=== PATIENT | male | born 1985 | race Caucasian/White ===

== ENCOUNTER 2022-07-29 09:32 | Emergency (ER) | payer BC ==
[2022-07-29 09:38] VITALS: RESP 16
--- NOTE | 2022-07-29 10:24 | XR ---
EXAMINATION TYPE: XR toes LT DATE OF EXAM: 07/29/2022 10:14 AM INDICATION: Patient age:Male; 36 years old; Reason for study: Trauma; [facility]. COMPARISON: None TECHNIQUE: The right great toe was examined in the AP, oblique, and lateral projections. FINDINGS: Nondisplaced fracture involving the distal first phalanx tuft. Soft tissue defect with gas identified involving the distal tip of the right great toe. No radiopaque foreign bodies. IMPRESSION: 1. Nondisplaced fracture involving the distal first phalanx tuft. 2. Soft tissue defect with gas identified over the distal tip of the first phalanx consistent with l aceration.
[2022-07-29] MEDS ORDERED: LIDOCAINE 1% INJ 10MG/ML (5 ML VIAL-PF) SQ STA (10:40)
[2022-07-29] MEDS ORDERED: MORPHINE SULFATE 4 MG/ML SYRINGE IM STA (10:42)
--- NOTE | 2022-07-29 10:46 | ED ---
Lower Extremity Injury HPI - General Chief Complaint: Extremity Injury, Lower Stated Complaint: rt toe injury Source: patient Mode of arrival: ambulatory Limitations: no limitations - History of Present Illness Initial Comments: Patient is a 36-year-old male presents to the emergency room after hitting his toe with a sledgehammer causing a laceration and significant pain and swelling to his great toe. He reports that he called the emergency room yesterday when the injury occurred but due to the weight times over weighted to attend the present to the emergency room until morning. During that time he did apply cornstarch to the wound as he was told by his grandmother will help staunch the bleeding. He also applied a dressing. He denies applying any other medications to the wound. He reports pain, swelling, and range of motion impairment since the trauma. He denies any fevers or chills. He has previously seen Dr. Ann for injury to his right ankle but denies any other significant past medical history. - Related Data Previous Rx's Medication Instructions Recorded Cephalexin [Keflex] 500 mg PO Q8HR 7 Days #21 cap 07/29/22 HYDROcodone/APAP 5-325MG [Renner 1 - 2 tab PO Q6HR PRN 3 Days #24 07/29/22 5-325] tab Allergies Allergy/AdvReac Type Severity Reaction Status Date / Time No Known Allergies Allergy Verified 07/29/22 10:00 Review of Systems ROS Statement: Those systems with pertinent positive or pertinent negative responses have been documented in the HPI. ROS Other: All systems not noted in ROS Statement are negative. Past Medical History Past Medical History: No Reported History History of Any Multi-Drug Resistant Organisms: None Reported Additional Past Surgical History / Comment(s): Kunia teeth Past Psychological History: No Psychological Hx Reported Smoking Status: Never smoker Past Alcohol Use History: Occasional Past Drug Use History: None Reported General Exam Limitations: no limitations General appearance: alert, in no apparent distress Head exam: Present: atraumatic, normocephalic, normal inspection Eye exam: Present: normal appearance, PERRL, EOMI. Absent: scleral icterus, conjunctival injection, periorbital swelling ENT exam: Present: normal exam, mucous membranes moist Neck exam: Present: normal inspection Respiratory exam: Absent: respiratory distress, accessory muscle use Left Foot/Toe exam: Present: tenderness, swelling, laceration, nail avulsion. Absent: full ROM (left great toe) Neurovascular tendon exam: Present: no vascular compromise Gait: observed and limited by pain Back exam: Present: normal inspection Neurological exam: Present: alert, oriented X3, CN II-XII intact Psychiatric exam: Present: normal affect, normal mood Skin exam: Present: abrasion, other (laceration and nail evulsion as indicated above) Course Vital Signs 07/29/22 07/29/22 09:34 12:18 Temperature 98.1 F 98.2 F Pulse Rate 73 77 Respiratory 16 16 Rate Blood Pressure 134/83 128/74 O2 Sat by Pulse 100 98 Oximetry Procedures - Laceration Laceration #1 Site: foot (Left great toe) Size (cm): 2 Description: avulsion (Of nail with particles to nail bed removed at base of the cuticle.), irregular Depth: simple, single layer Anesthetic Used: lidocaine 1% Anesthesia Technique: nerve block Pre-repair: wound explored, irrigated extensively Type of Sutures: nylon Size of Sutures: 4-0 Number of Sutures: 4 Technique: simple, interrupted Patient Tolerated Procedure: well, no complications Medical Decision Making - Medical Decision Making 36-year-old male post trauma to his left great toe with a sledgehammer with consequent laceration nail avulsion and swelling with range of motion impairment. Will check x-ray to evaluate for fracture prior to planning for closure of laceration and complete removal of remaining nail particles. X-ray reveals nondisplaced fracture involving the distal first phalanx tuft due to laceration with gas identified over the distal tip of the first phalanx will consider open fracture and treat accordingly with that dose of IV antibiotics along with oral antibiotics. Laceration to nailbed and nail tip along with nail fragments removed after digital block without complications. Wound care discussed. Will place patient in surgical shoe and have him follow-up with his labor delivery specialist Dr. Ann. Advised to also follow-up with primary care provider. Will give short course of Renner for pain as pain severe to utilize as needed until follow up with orthopedist. Case discussed with Dr. Rios. - Radiology Data Radiology results: report reviewed, image reviewed X-ray toes left impression nondisplaced fracture involving the first phalanx to have distal. Soft tissue defect with gas identified over the distal tip of the first phalanx consistent with laceration. Disposition Clinical Impression: Open fracture of phalanx of right foot, Laceration Disposition: HOME SELF-CARE Condition: Fair Instructions (If sedation given, give patient instructions): Care For Your Stitches (ED), Laceration (ED), Toe Fracture (ED) Additional Instructions: Please keep wound clean and dry. Monitor for signs and symptoms of infection. Please follow-up with your primary care provider in 7-10 days for suture remov al. Please follow-up with your already established orthopedist Dr. Niall Ann. Please complete course of antibiotics. Please continue to utilize surgical she and continue weightbearing as tolerated. Avoid any high impact activities. Utilize Renner as needed for severe pain. Please return to the Emergency Department if symptoms worsen or any other concerns. Prescriptions: Cephalexin [Keflex] 500 mg PO Q8HR 7 Days #21 cap HYDROcodone/APAP 5-325MG [Renner 5-325] 1 - 2 tab PO Q6HR PRN 3 Days #24 tab PRN Reason: Pain Is patient prescribed a controlled substance at d/c from ED?: Yes When asked, does pt state using other controlled substances?: No If prescribed controlled substance>3 days was MAPS reviewed?: Prescribed <3 Days If opioid is for acute pain is fill amount 7 days or less?: Yes Referrals: None,Stated [Primary Care Provider] - 1-2 days Niall Ann MD [STAFF PHYSICIAN] - 1-2 days Time of Disposition: 11:54
[2022-07-29 12:19] VITALS: BP 128/74; PULSE 77; TEMP 98.2
== END 2022-07-29 12:18 | disposition home or self-care (01) ==
LOC: EC 09:32
DX: S92.421A Displaced fracture of distal phalanx of right great toe, initial encounter for closed fracture (principal); X58.XXXA Exposure to other specified factors, initial encounter
CPT/HCPCS: 12001; 99283; 96365; 96372; 73660; J2270; J0690; J2001